=== PATIENT | female | born 1975 | race African-American/Black ===

== ENCOUNTER 2018-04-24 01:44 | Emergency (ER) | payer SELFPAY ==
[~2018-04-24] VITALS: Ht 167.6 cm; Wt 100.0 kg
[2018-04-24] MEDS ORDERED: ENALAPRIL 2.5MG/2ML VIAL 2ML IV ONE (04:30)
[2018-04-24 05:32] LABS: BASOPHILS % 0.4 % (0.0-2.0); CHLORIDE 104 mEq/L (98-107); EOSINOPHILS % 1.9 % (0.0-5.0); HEMATOCRIT. 37.7 % (36.0-48.0); HEMOGLOBIN. 11.9 g/dL (12.0-16.0); LYMPHOCYTES % 33.5 % (20.0-50.0); MEAN CORPUSCULAR HEMOGLOBIN 21.1 pg (28.0-32.0); MEAN CORPUSCULAR VOLUME 66.7 fL (81.0-99.0); MEAN PLATELET VOLUME 9.4 fl (7.4-10.4); MONOCYTES % 7.6 % (2.0-8.0); NEUTROPHILS % 56.6 % (40.0-76.0); PLATELET 358 x1000/uL (130-400); RED BLOOD CELL COUNT 5.65 mill/uL (4.2-5.4); RED CELL DISTRIBUTION WIDTH 16.5 % (11.6-14.6)
[2018-04-24 06:31] VITALS: BP 160/90
[2018-04-24 07:00] LABS: PLATELET ESTIMATE NORMAL
== END 2018-04-24 06:34 | disposition home or self-care (01) ==
LOC: ER 02:23
DX: I10 Essential (primary) hypertension (principal); R42 Dizziness and giddiness
CPT/HCPCS: 36415; 80048; 81025; 85025; 93005; 96374; 99285; J3490; Z7610